=== PATIENT | female | born 1995 | race Caucasian/White ===

== ENCOUNTER 2017-07-20 16:23 | Emergency (ER) | payer OTHER ==
[~2017-07-20] VITALS: Ht 154.9 cm; Wt 50.5 kg
[2017-07-20 16:29] VITALS: TEMP 37.2; Ht 154.9 cm; Wt 50.5 kg
[2017-07-20] MEDS ORDERED: ONDANSETRON INJ 2 MG/ML 2 ML VIAL IV STA (16:36)
--- NOTE | 2017-07-20 16:43 | EMERGENCY ROOM VISIT NOTE ---
History Report prepared by Joann: Luan Abbott Under the Supervision of: Dr. Trae Thacker M.D. First contact with patient: 16:34 Chief Complaint: ABDOMINAL PAIN Stated Complaint: RLQ PAIN History of Present Illness The patient is a 21 year old female who presents to the Emergency Room with complaints of persistent right lower quadrant abdominal pain that started last night. She states that the pain is worsened with movement, especially bending over. The patient notes that the pain gets as bad as an 8 out of 10 in severity , and currently is a 6 out of 10. She adds that she has had a bit of nausea as well. The patient states that she has not taken any medications for the pain. She denies any fevers, chills, urinary symptoms, or diarrhea. The patient notes no history of abdominal surgeries or ovarian cysts. She says that her last menstrual cycle finished 3 days ago, and it was normal. She had an IUD inserted a few months ago. She does not take any daily medications. Source of History: patient Onset: Last night Position: abdomen (RLQ) Symptom Intensity: at worst an 8/10 Timing: other (persistent) Associated Symptoms: + nausea, No fevers, No chills, No diarrhea, No urinary symptoms Note: No other associated symptoms noted. Review of Systems See HPI for pertinent positives & negatives. A total of 10 systems reviewed and were otherwise negative. Past Medical & Surgical Medical Problems: (1) No chronic diseases present Family History FH: ovarian cancer Seizures Social History Smoking Status: Never Smoker Marital Status: in relationship Housing Status: lives with roommate Occupation Status: student Current/Historical Medications No Active Prescriptions or Reported Meds Allergies Coded Allergies: Lamotrigine (Verified Allergy, Intermediate, Rash,hives and breathing difficulty, 07/20/17) Sulfamethoxazole w/Trimethoprim (Verified Allergy, Intermediate, [place]anner sickly, 07/20/17) Physical Exam Vital Signs Date Time Temp Pulse Resp B/P (MAP) Pulse Ox O2 Delivery O2 Flow Rate FiO2 07/20/17 16:29 37.2 97 16 125/82 97 Room Air Physical Exam GENERAL: Patient is in no acute distress. HEENT: No acute trauma, normocephalic atraumatic, mucous membranes moist, no nasal congestion, no scleral icterus. NECK: No stridor, no adenopathy, no meningismus, trachea is midline. LUNGS: Clear to auscultation bilaterally, no wheeze, no rhonchi, breath sounds equal. HEART: Without murmurs gallops or rubs, regular rate and rhythm. ABDOMEN: Moderately tender in the right lower quadrant. Soft, bowel sounds positive, no hernias, no peritonitis. EXTREMITIES: No cyanosis or edema, full range of motion of all the joints without pain or difficulty, no signs for acute trauma. NEUROLOGIC: Oriented x 3, no acute motor or sensory deficits, no focal weakness. SKIN: No rash, no jaundice, no diaphoresis. Medical Decision & Procedures Laboratory Results 07/20/17 17:25 Red Blood Count 4.26, Mean Corpuscular Volume 93.4, Mean Corpuscular Hemoglobin 32.2, Mean Corpuscular Hemoglobin Concent 34.4, Mean Platelet Volume 9.4, Neutrophils (%) (Auto) 55.9, Lymphocytes (%) (Auto) 33.2, Monocytes (%) (Auto) 9.6, Eosinophils (%) (Auto) 0.8, Basophils (%) (Auto) 0.2, Neutrophils # (Auto) 5.39, Lymphocytes # (Auto) 3.21, Monocytes # (Auto) 0.93, Eosinophils # (Auto) 0.08, Basophils # (Auto) 0.02 07/20/17 17:25 Test 07/20/17 17:25 07/20/17 17:30 White Blood Count 9.66 K/uL (4.8-10.8) Red Blood Count 4.26 M/uL (4.2-5.4) Hemoglobin 13.7 g/dL (12.0-16.0) Hematocrit 39.8 % (37-47) Mean Corpuscular Volume 93.4 fL (80-100) Mean Corpuscular Hemoglobin 32.2 pg (25-34) Mean Corpuscular Hemoglobin Concent 34.4 g/dl (32-36) Platelet Count 276 K/uL (130-400) Mean Platelet Volume 9.4 fL (7.4-10.4) Neutrophils (%) (Auto) 55.9 % Lymphocytes (%) (Auto) 33.2 % Monocytes (%) (Auto) 9.6 % Eosinophils (%) (Auto) 0.8 % Basophils (%) (Auto) 0.2 % Neutrophils # (Auto) 5.39 K/uL (1.4-6.5) Lymphocytes # (Auto) 3.21 K/uL (1.2-3.4) Monocytes # (Auto) 0.93 K/uL (0.11-0.59) Eosinophils # (Auto) 0.08 K/uL (0-0.5) Basophils # (Auto) 0.02 K/uL (0-0.2) RDW Standard Deviation 43.5 fL (36.4-46.3) RDW Coefficient of Variation 12.8 % (11.5-14.5) Immature Granulocyte % (Auto) 0.3 % Immature Granulocyte # (Auto) 0.03 K/uL (0.00-0.02) Anion Gap 8.0 mmol/L (3-11) Est Creatinine Clear Calc Drug Dose 93.5 ml/min Estimated GFR () 138.4 Estimated GFR (Non- 119.4 BUN/Creatinine Ratio 29.5 (10-20) Calcium Level 8.9 mg/dl (8.5-10.1) Total Bilirubin 0.5 mg/dl (0.2-1) Aspartate Amino Transf (AST/SGOT) 16 U/L (15-37) Alanine Aminotransferase (ALT/SGPT) 15 U/L (12-78) Alkaline Phosphatase 79 U/L (45-117) Total Protein 7.4 gm/dl (6.4-8.2) Albumin 3.8 gm/dl (3.4-5.0) Globulin 3.6 gm/dl (2.5-4.0) Albumin/Globulin Ratio 1.1 (0.9-2) Lipase 130 U/L (73-393) Human Chorionic Gonadotropin, Qual NEG (NEG) Urine Color YELLOW Urine Appearance CLEAR (CLEAR) Urine pH 7.0 (4.5-7.5) Urine Specific [place] 1.023 (1.000-1.030) Urine Protein NEG (NEG) Urine Glucose (UA) NEG (NEG) Urine Ketones NEG (NEG) Urine Occult Blood NEG (NEG) Urine Nitrite NEG (NEG) Urine Bilirubin NEG (NEG) Urine Urobilinogen NEG (NEG) Urine Leukocyte Esterase MODERATE (NEG) Urine WBC (Auto) 1-5 /hpf (0-5) Urine RBC (Auto) 0-4 /hpf (0-4) Urine Hyaline Casts (Auto) 0 /lpf (0-5) Urine Epithelial Cells (Auto) >30 /lpf (0-5) Urine Bacteria (Auto) NEG (NEG) Laboratory results reviewed by me. Medications Administered Medications (Trade) Dose Ordered Sig/Sonya Route Start Time Stop Time Status Last Admin Dose Admin Ondansetron HCl (Zofran Inj) 4 mg NOW STAT IV 07/20/17 16:36 07/20/17 16:39 DC 07/20/17 17:30 4 MG ED Course 1634: The patient was evaluated in room B3B. A complete history and physical exam was performed. 1636: Ordered Zofran Inj 4 mg IV. 1800: The patient was signed out to Dr. Castillo at change of shift. Medical Decision Differential diagnosis includes but is not limited to ovarian cyst, appendicitis , hernia, musculoskeletal pain, UTI, , pancreatitis. There is no leukocytosis or concerning anemia. No significant electrolyte abnormality, kidney failure or hepatitis. testing is negative. Urinalysis does not show evidence for infection. Abdominal and pelvic ultrasounds are pending. Abdominal and pelvis CT is pending. The patient received IV Zofran for nausea. She did not want anything for pain. The patient presents with right lower quadrant pain, appendicitis or ovarian cyst are certainly possibilities. An ultrasound of the pelvis and abdomen have been ordered, these results are pending. A CT of the abdomen and pelvis may be needed if the patient's ultrasounds are unrevealing. At this point, the case is being assumed by Dr. Castillo. He is the physician assuming care of the change of shift. Please see his notes for the results of the imaging and the patient's final disposition and plan. Medication Reconcilliation Current Medication List: was personally reviewed by me Blood Pressure Screening Patient's blood pressure: Normal blood pressure Impression Primary Impression: Right lower quadrant abdominal pain Scribe Attestation The scribe's documentation has been prepared under my direction and personally reviewed by me in its entirety. I confirm that the note above accurately reflects all work, treatment, procedures, and medical decision making performed by me. Departure Information Dispostion Still a Patient (signed out to Dr. Castillo) Prescriptions No Active Prescriptions or Reported Meds Patient Instructions My [facility]
[2017-07-20] MEDS ORDERED: OPTIRAY 320 IV PRN (17:00)
[2017-07-20 17:42] LABS: BASO % 0.2 %; BASO ABS # 0.02 K/uL (0-0.2); EOS % 0.8 %; EOS ABS # 0.08 K/uL (0-0.5); HEMATOCRIT 39.8 % (37-47); HEMOGLOBIN 13.7 g/dL (12.0-16.0); IG# 0.03 K/uL (0.00-0.02); LYMPH % 33.2 %; LYMPH ABS # 3.21 K/uL (1.2-3.4); MEAN CELL VOLUME 93.4 fL (80-100); MEAN CORPUSCULAR HEMOGLOBIN 32.2 pg (25-34); MEAN CORPUSCULAR HGB CONC 34.4 g/dl (32-36); MEAN PLATELET VOLUME 9.4 fL (7.4-10.4); MONO % 9.6 %; MONO ABS # 0.93 K/uL (0.11-0.59); NEUT % 55.9 %; NEUT ABS # 5.39 K/uL (1.4-6.5); PLATELET COUNT 276 K/uL (130-400); RED CELL DISTRIBUTION WIDTH CV 12.8 % (11.5-14.5); RED CELL DISTRIBUTION WIDTH SD 43.5 fL (36.4-46.3); WHITE BLOOD COUNT 9.66 K/uL (4.8-10.8)
[2017-07-20 18:08] LABS: ALBUMIN 3.8 gm/dl (3.4-5.0); CALCIUM 8.9 mg/dl (8.5-10.1); CREATININE 0.73 mg/dl (0.60-1.20); POTASSIUM 3.6 mmol/L (3.5-5.1); TOTAL PROTEIN 7.4 gm/dl (6.4-8.2)
--- NOTE | 2017-07-20 19:08 | DIAGNOSTIC IMAGING REPORT ---
ABDOMEN LIMITED (US) HISTORY: Flank pain ABDOMINAL PAIN. COMPARISON: None. FINDINGS: The appendix is not identified. IMPRESSION: Nondiagnostic study of the appendix The above report was generated using voice recognition software. It may contain grammatical, syntax or spelling errors. Electronically signed by: Jalen Carney M.D. 07/20/2017 7:06 PM Dictated Date/Time: 07/20/2017 7:06 PM
--- NOTE | 2017-07-20 19:11 | DIAGNOSTIC IMAGING REPORT ---
PELVIC COMPLETE NON OB CLINICAL HISTORY: rlq abd pain PELVIC PAIN COMPARISON STUDY: None FINDINGS: The uterus measured 7.3 cm. The endometrial stripe measured 3 mm. Intrauterine device within the central canal in good position. The right ovary measured 3.6 cm maximum dimension. 2 cm hemorrhagic cyst.. Normal vascular flow. The left ovary measured 3.37 measures maximum dimension. Several small follicular cyst. Normal vascular flow. There is no ultrasonographic evidence of ovarian torsion. It should be noted that ovarian torsion can be present with normal Doppler ultrasonographic findings. There was no evidence of pathologic free pelvic fluid. IMPRESSION: 2 cm hemorrhagic right ovarian cyst. Several small bilateral ovarian follicular cysts. Otherwise negative study. The above report was generated using voice recognition software. It may contain grammatical, syntax or spelling errors. Electronically signed by: Jalen Carney M.D. 07/20/2017 7:10 PM Dictated Date/Time: 07/20/2017 7:07 PM
--- NOTE | 2017-07-20 19:38 | EMERGENCY ROOM VISIT NOTE ---
ED Visit Note This is a 21-year-old female who was signed out to me awaiting ultrasound report. The patient's ultrasound of the pelvis reveals a 2 cm hemorrhagic right ovarian cyst. I spoke with the patient. She states that she had sudden onset of pain last night. The pain persisted into today. Her exam reveals tenderness in the right lower quadrant but more so in the right pelvis which is consistent with her ultrasound. She states that she has a normal appetite. She has not had any fevers. She is unlikely to have appendicitis. The patient is felt to be stable for discharge. She states that her pain is manageable. She was advised to return should she have increasing abdominal pain, lightheadedness, paleness or other concerning symptoms. DX: right hemorrhagic ovarian cyst
[2017-07-20 19:47] VITALS: BP 122/73; PULSE 80; O2SAT 98
== END 2017-07-20 19:47 | disposition home or self-care (01) ==
LOC: C.EDB 16:24
DX: N83.201 Unspecified ovarian cyst, right side (principal); R10.31 Right lower quadrant pain; Z82.0 Family history of epilepsy and other diseases of the nervous system; Z80.41 Family history of malignant neoplasm of ovary